=== PATIENT | female | born 1935 | race Caucasian/White ===

== ENCOUNTER 2018-03-16 05:59 | Day surgery (SDC) | payer MEDICARE ==
[2018-03-14 12:09] LABS: BASOPHILS # (AUTO) 0.1 X10'3 (0-0.2); BASOPHILS % (AUTO) 0.9 % (0-1); EOSINOPHILS # (AUTO) 0.3 X10'3 (0-0.9); EOSINOPHILS % (AUTO) 4.7 % (0-6); HEMOGLOBIN 13.8 g/dl (12.0-16.0); LYMPHOCYTES # (AUTO) 1.7 X10'3 (1.1-4.8); LYMPHOCYTES % (AUTO) 23.6 % (21-51); MEAN CORPUSCULAR HEMOGLOBIN 32.2 PG (27.0-31.0); MEAN CORPUSCULAR HGB CONC 34.4 % (33.0-36.5); MEAN CORPUSCULAR VOLUME 93.6 FL (78-98); MEAN PLATELET VOLUME 8.4 FL (7.4-10.4); MONOCYTES # (AUTO) 0.7 X10'3 (0-0.9); MONOCYTES % (AUTO) 9.4 % (2-12); NEUTROPHILS # (AUTO) 4.5 X10'3 (1.8-7.7); NEUTROPHILS % (AUTO) 61.4 % (42-75); PLATELET COUNT 201 X10'3 (140-440); RED BLOOD COUNT 4.28 X10'6 (4.20-5.60); RED CELL DISTRIBUTION WIDTH 14.2 % (11.5-14.5); WHITE BLOOD COUNT 7.3 X10'3 (4.5-11.0)
[2018-03-14 12:19] LABS: PARTIAL THROMBOPLASTIN TIME 22 SECONDS (22-32); PROTHROMBIN TIME 10.3 SECONDS (9.0-12.0)
[2018-03-14 12:21] LABS: ALBUMIN 3.7 G/DL (3.4-5.0); ANION GAP 9 (8-16); BLOOD UREA NITROGEN 13 MG/DL (7-18); BUN/CREATININE RATIO 17.3 (6.6-38.0); CALCIUM 9.2 MG/DL (8.5-10.1); CHLORIDE 105 MMOL/L (99-107); CREATININE 0.75 MG/DL (0.40-0.90); GLUCOSE 82 MG/DL (70-104); POTASSIUM 4.3 MMOL/L (3.5-5.1); SODIUM 141 MMOL/L (135-145); TOTAL CARBON DIOXIDE 27.5 MMOL/L (24-32); eGFR 74 ML/MIN
[2018-03-16] VITALS (18 sets, daily range): BP systolic 94–154; BP diastolic 56–72
[~2018-03-16] VITALS: Ht 157.5 cm; Wt 78.3 kg
[2018-03-16] MEDS ORDERED: LORazepam 0.5 MG tablet PO PRN (06:45)
[2018-03-16] MEDS ORDERED: diphenhydrAMINE 25mg capsule PO PRN (06:45)
[2018-03-16] MEDS ORDERED: normal saline 1000ml 1,000 ML IV SCH ×2 (07:05→11:00)
[2018-03-16] MEDS ORDERED: CARV-50 PO (07:19)
[2018-03-16] MEDS ORDERED: [UNRECOGNIZED DRUG - REMARK] (07:19)
[2018-03-16] MEDS ORDERED: CANNIBUS OIL (07:19)
[2018-03-16] MEDS ORDERED: water pill (07:19)
[2018-03-16] MEDS ORDERED: fentaNYL/PF 50MCG/1 ML 2ML syringe ONE (07:47)
[2018-03-16] MEDS ORDERED: iohexol 350 MG/ML 50ML vial IV ONE (07:47)
[2018-03-16] MEDS ORDERED: nitroGLYCERIN-Tridil 50MG/D5W 250 ML IV ONE (07:47)
[2018-03-16] MEDS ORDERED: midazolam 2 mg/2 ml injection ONE (07:47)
[2018-03-16] MEDS ORDERED: heparin 1,000unit/ml 10ml vial 10 ML ONE (07:47)
[2018-03-16] MEDS ORDERED: LIDOcaine 1% w/EPI 1:100,000 30ml vial (MDV) ONE (07:48)
[2018-03-16] MEDS ORDERED: iohexol 350MG/ML 100ml bottle IV ONE (07:48)
[2018-03-16] MEDS ORDERED: TURM538C (08:41)
[2018-03-16] MEDS ORDERED: PRE5T PO (08:41)
[2018-03-16] MEDS ORDERED: HYOS-13 PO (08:41)
[2018-03-16] MEDS ORDERED: garlic PO (08:41)
[2018-03-16] MEDS ORDERED: CYA500T PO (08:41)
[2018-03-16] MEDS ORDERED: AMLO5TAB PO (08:41)
[2018-03-16] MEDS ORDERED: SUCR1TAB PO (08:41)
[2018-03-16] MEDS ORDERED: OMEP20TA5 PO (08:41)
[2018-03-16] MEDS ORDERED: MELO-102 PO (08:41)
[2018-03-16] MEDS ORDERED: VITA400C65 PO (08:41)
[2018-03-16] MEDS ORDERED: OMEG1CAP46 (08:41)
[2018-03-16] MEDS ORDERED: acetaminophen 325mg tablet PO PRN (11:00)
[2018-03-16] MEDS ORDERED: HYDROcodone/acetaminophen 10/325mg tab PO PRN (11:00)
[2018-03-16] MEDS ORDERED: OXAZEpam 15mg capsule PO PRN (11:00)
[2018-03-16] MEDS ORDERED: ondansetron/PF 4mg/2ml inj IV PRN (11:00)
[2018-03-16] MEDS ORDERED: HYDROcodone/acetaminophen 5mg/325mg tablet PO PRN (11:00)
[2018-03-16] MEDS ORDERED: proCHLORperazine 10 MG/2 ml inj IV PRN (11:00)
== END 2018-03-16 16:00 | disposition home or self-care (01) ==
LOC: SSTAY O 05:59
PROVIDERS: ATTEND Internal Medicine Cardiovascular Disease
DX: I25.10 Atherosclerotic heart disease of native coronary artery without angina pectoris (principal); I08.1 Rheumatic disorders of both mitral and tricuspid valves; I10 Essential (primary) hypertension; E78.5 Hyperlipidemia, unspecified; I27.20 Pulmonary hypertension, unspecified; E83.110 Hereditary hemochromatosis; E66.3 Overweight; K21.9 Gastro-esophageal reflux disease without esophagitis; M19.90 Unspecified osteoarthritis, unspecified site; Z72.89 Other problems related to lifestyle; Z90.710 Acquired absence of both cervix and uterus; Z87.891 Personal history of nicotine dependence; Z68.31 Body mass index [BMI] 31.0-31.9, adult; Z88.8 Allergy status to other drugs, medicaments and biological substances; Z79.899 Other long term (current) drug therapy
CPT/HCPCS: 36415; 80048; 85025; 85610; 85730; 93005; 93458; 99152; 99153; A6257; A6402; A6449; C1760; C1769; J1644; J2250; J3010; J3490; J7030; Q0163; Q9967; A4620

== ENCOUNTER 2022-03-01 14:25 | Outpatient (CLI) | payer MEDICARE ==
[~2022-03-01 14:25] MED LIST: AMLO5TAB PO; CARV-50 PO; CYAN500T71 PO; HYOS-13 PO; MELO-102 PO; OMEG1CAP46; OMEP20TA43 PO; PRE5T PO; SUCR1TAB PO; TURM538C; VITA-134 PO; garlic PO
== END 2022-03-01 23:59 | disposition home or self-care (01) ==
LOC: CARD DIAG 14:25
PROVIDERS: ATTEND Internal Medicine Cardiovascular Disease
DX: I08.3 Combined rheumatic disorders of mitral, aortic and tricuspid valves (principal)
CPT/HCPCS: 93306